=== PATIENT | female | born 1980 | race Caucasian/White ===

== ENCOUNTER 2019-01-14 05:36 | Day surgery (SDC) | payer MEDICAID ==
[2019-01-12 15:49] LABS: BASOPHILS # (AUTO) 0.1 X10'3 (0-0.2); BASOPHILS % (AUTO) 0.6 % (0-1); EOSINOPHILS # (AUTO) 0.2 X10'3 (0-0.9); EOSINOPHILS % (AUTO) 2.1 % (0-6); LYMPHOCYTES # (AUTO) 2.2 X10'3 (1.1-4.8); LYMPHOCYTES % (AUTO) 23.7 % (21-51); MEAN CORPUSCULAR HEMOGLOBIN 29.2 PG (27.0-31.0); MEAN CORPUSCULAR HGB CONC 33.2 g/dL (33.0-36.5); MEAN CORPUSCULAR VOLUME 87.7 FL (78-98); MEAN PLATELET VOLUME 8.7 FL (7.4-10.4); MONOCYTES # (AUTO) 0.8 X10'3 (0-0.9); MONOCYTES % (AUTO) 8.1 % (2-12); NEUTROPHILS # (AUTO) 6.1 X10'3 (1.8-7.7); NEUTROPHILS % (AUTO) 65.5 % (42-75); PRE OP PLATELET COUNT 233 X10'3 (140-440); RED BLOOD COUNT 4.45 X10'6 (4.20-5.60)
[2019-01-12 15:49] LABS: CLARITY,URINE CLOUDY (Clear); COLOR,URINE YELLOW (Yellow); GLUCOSE, URINE NEGATIVE (Neg); KETONES,URINE NEGATIVE (Neg); LEUKOCYTE ESTERASE ,URINE NEGATIVE (Neg); NITRITES, URINE NEGATIVE (Neg); OCCULT BLOOD,URINE NEGATIVE (Neg); PH,URINE 5.5 (4.8-8.0); PROTEIN,URINE NEGATIVE (Neg); UROBILINOGEN,URINE 0.2 E.U/dL (0.2-1.0)
[2019-01-12 15:50] LABS: UA COLLECTION TYPE CLN CATCH MIDSTREAM
[2019-01-12 15:59] LABS: BACTERIA,URINE 1+ /HPF (Neg); MUCUS STRANDS MODERATE /LPF (Neg); RBC,URINE 0-2 /HPF (0-2); SQUAMOUS EPITHELIAL CELL,UR MANY /LPF (FEW); WBC,URINE 0-4 /HPF (0-4)
[2019-01-12 16:00] LABS: ALBUMIN/GLOBULIN RATIO 1.1 (1.1-1.5); ALKALINE PHOSPHATASE 51 IU/L (46-116); BLOOD UREA NITROGEN 9 MG/DL (7-18); BUN/CREATININE RATIO 11.8 (6.6-38.0); CHLORIDE 104 MMOL/L (99-107); CREATININE 0.76 MG/DL (0.40-0.90); PRE OP ALT 26 U/L (30-65); PRE OP ANION GAP 8 (8-16); PRE OP AST 15 U/L (10-37); PRE OP BILIRUB, TOTAL 0.7 MG/DL (0.0-1.0); PRE OP GLUCOSE 85 MG/DL (70-104); PRE OP POTASSIUM 3.4 MMOL/L (3.4-5.1); PRE OP SODIUM 138 MMOL/L (135-145); TOTAL CARBON DIOXIDE 26.2 MMOL/L (24-32); TOTAL PROTEIN 7.6 G/DL (6.4-8.2); eGFR 86 ML/MIN
[2019-01-12 16:06] LABS: HCG SERUM QL NEGATIVE
[2019-01-12 16:09] LABS: PRE OP PROTIME 10.2 SECONDS (9.0-12.0)
[~2019-01-14] VITALS: Ht 163.8 cm; Wt 81.4 kg
[2019-01-14] VITALS (15 sets, daily range): BP systolic 105–136; BP diastolic 56–87
[~2019-01-14 05:36] MED LIST: DOCUMENT DATE & TIME OF BETA-BLOCKER PO ONE; HYDR25TA4 PO; LABE100T5 PO; NIFE90TA2 PO; ceFOXitin 2 GM ADDVANTGE BAG 50 ML IV ONE; famotidine 20mg tablet PO ONE; ringers solution, lacted 1,000 ML IV SCH
[2019-01-14] MEDS ORDERED: LIDOcaine 1% (10mg/ml) 2ml vial ONE (06:05)
[2019-01-14] MEDS ORDERED: BUPIVAcaine/PF 2.5mg/ml (0.25%) 10ml vial ONE (06:37)
[2019-01-14] MEDS ORDERED: sevoflurane 250ml liquid IH ONE (07:16)
[2019-01-14] MEDS ORDERED: midazolam 2 mg/2 ml injection ONE (07:16)
[2019-01-14] MEDS ORDERED: dexamethasone sod phosphate 10mg/ml inj ONE (07:16)
[2019-01-14] MEDS ORDERED: fentaNYL/PF 50MCG/1 ML 2ML syringe ONE (07:16)
[2019-01-14] MEDS ORDERED: rocuronium 10mg/ml inj IV ONE (07:19)
[2019-01-14] MEDS ORDERED: propofol inj 20 ML IV ONE (07:19)
[2019-01-14] MEDS ORDERED: ringers solution, lacted 1,000 ML IV SCH (07:52)
[2019-01-14] MEDS ORDERED: meperidine/PF 25mg/ml syringe IV PRN ×2 (07:55)
[2019-01-14] MEDS ORDERED: proCHLORperazine 10 MG/2 ml inj IV PRN (07:55)
[2019-01-14] MEDS ORDERED: morphine 4 MG/ML inj SYRINge IV PRN ×2 (07:55)
[2019-01-14] MEDS ORDERED: ondansetron/PF 4mg/2ml inj IV PRN (07:55)
[2019-01-14] MEDS ORDERED: ondansetron/PF 4mg/2ml inj ONE (08:04)
[2019-01-14] MEDS ORDERED: acetaminophen 1,000mg/100ml IV 100 ML IV ONE (08:05)
[2019-01-14] MEDS ORDERED: neostigmine methylsulfate 1 MG/ML 10ml vial ONE (08:12)
[2019-01-14] MEDS ORDERED: glycopyrrolate 0.2mg/ml inj ONE (08:13)
--- NOTE | 2019-01-14 08:29 | NUR ---
Received from OR via [facility], accompanied by Anesthesiologist DR JUAREZ and report given by Anesthesiologist. PT VERY DROWSY, NO S/S OF DISTRESS/DISTRESS, ABDOMEN W/3 LAP SITES W/BANDAIDS CDI. Addendum: 01/14/19 at 0846 by Manjula Hall RN Amended: Links added.
[2019-01-14] MEDS: meperidine/PF 25mg/ml syringe IV PRN ×2 (08:51→09:03)
[2019-01-14] MEDS ORDERED: ketorolac trometh. 30mg/ml inj. IV ONE (09:00)
--- NOTE | 2019-01-14 10:29 | NUR ---
PT UP AND OOB, AMBULATES STEADY TO BATHROOM FOR VOID, D/C INSTRUCTIONS GONE OVER AND GIVEN TO PT, PT VERBALIZES UNDERSTANDING, PT D/CD TO HOME VIA W/C TO PRIVATE VEHICLE W/O INCIDENT. Addendum: 01/14/19 at 1046 by Manjula Hall RN Amended: Links added.
== END 2019-01-14 10:29 | disposition home or self-care (01) ==
LOC: PAS 05:36
PROVIDERS: ATTEND Obstetrics & Gynecology
DX: Z30.2 Encounter for sterilization (principal); I10 Essential (primary) hypertension; Z79.899 Other long term (current) drug therapy; Z87.891 Personal history of nicotine dependence; Z98.890 Other specified postprocedural states
CPT/HCPCS: 36415; 58661; 80053; 81001; 82948; 84703; 85025; 85610; 85730; 86885; 86900; 86901; J0131; J0694; J1100; J1885; J2001; J2175; J2250; J2405; J2704; J2710; J3010; J3490; A4618; J7120

== ENCOUNTER 2021-09-06 11:04 | Day surgery (SDC) | payer MEDICAID ==
[2021-08-31 12:08] LABS: CLARITY,URINE SLIGHTLY CLOUDY (Clear); COLOR,URINE YELLOW (Yellow); GLUCOSE, URINE NEGATIVE (Neg); KETONES,URINE NEGATIVE (Neg); LEUKOCYTE ESTERASE ,URINE NEGATIVE (Neg); NITRITES, URINE NEGATIVE (Neg); OCCULT BLOOD,URINE NEGATIVE (Neg); PH,URINE 7.5 (4.8-8.0); PROTEIN,URINE NEGATIVE (Neg); UROBILINOGEN,URINE 0.2 E.U/dL (0.2-1.0)
[2021-08-31 12:09] LABS: UA COLLECTION TYPE CLN CATCH MIDSTREAM
[2021-08-31 12:14] LABS: BACTERIA,URINE 2+ /HPF (Neg); RBC,URINE NONE SEEN /HPF (0-2); WBC,URINE 0-4 /HPF (0-4)
[2021-08-31 12:15] LABS: MUCUS STRANDS FEW /LPF (Neg); SQUAMOUS EPITHELIAL CELL,UR MANY /LPF (FEW)
[2021-08-31 12:26] LABS: BASOPHILS # (AUTO) 0.1 X10'3 (0-0.2); BASOPHILS % (AUTO) 1.1 % (0-1); EOSINOPHILS # (AUTO) 0.1 X10'3 (0-0.9); EOSINOPHILS % (AUTO) 1.8 % (0-6); LYMPHOCYTES % (AUTO) 24.8 % (21-51); MEAN CORPUSCULAR HEMOGLOBIN 29.1 PG (27.0-31.0); MEAN CORPUSCULAR HGB CONC 33.9 g/dL (33.0-36.5); MEAN CORPUSCULAR VOLUME 85.9 FL (78-98); MEAN PLATELET VOLUME 8.6 FL (7.4-10.4); MONOCYTES # (AUTO) 0.6 X10'3 (0-0.9); MONOCYTES % (AUTO) 7.7 % (2-12); NEUTROPHILS # (AUTO) 5.1 X10'3 (1.8-7.7); NEUTROPHILS % (AUTO) 64.6 % (42-75); PRE OP HEMATOCRIT 39.2 % (35.0-45.0); PRE OP HEMOGLOBIN 13.3 g/dL (12.0-16.0); PRE OP PLATELET COUNT 274 X10'3 (140-440); RED BLOOD COUNT 4.57 X10'6 (4.20-5.60); RED CELL DISTRIBUTION WIDTH 12.9 % (11.5-14.5)
[2021-08-31 12:39] LABS: HCG SERUM QL NEGATIVE
[2021-08-31 12:49] LABS: ALBUMIN/GLOBULIN RATIO 1.1 (1.1-1.5); ALKALINE PHOSPHATASE 52 IU/L (46-116); BLOOD UREA NITROGEN 9 MG/DL (7-18); BUN/CREATININE RATIO 14.1 (6.6-38.0); CALCIUM 8.8 MG/DL (8.5-10.1); CHLORIDE 102 MMOL/L (99-107); CREATININE 0.64 MG/DL (0.40-0.90); PRE OP ALT 25 U/L (30-65); PRE OP ANION GAP 9 (8-16); PRE OP AST 19 U/L (10-37); PRE OP BILIRUB, TOTAL 0.6 MG/DL (0.0-1.0); PRE OP GLUCOSE 86 MG/DL (70-104); PRE OP POTASSIUM 3.6 MMOL/L (3.4-5.1); PRE OP SODIUM 139 MMOL/L (135-145); TOTAL CARBON DIOXIDE 27.6 MMOL/L (24-32); TOTAL PROTEIN 7.5 G/DL (6.4-8.2); eGFR > 90 ML/MIN
[2021-09-06] VITALS (9 sets, daily range): BP systolic 111–126; BP diastolic 65–83
[~2021-09-06] VITALS: Ht 162.6 cm; Wt 86.9 kg
[~2021-09-06 11:04] MED LIST changes: -DOCUMENT DATE & TIME OF BETA-BLOCKER PO ONE; -ceFOXitin 2 GM ADDVANTGE BAG 50 ML IV ONE; +ceFOXitin 2GM-NS 100mL ADDvant 100 ML IV ONE; -ringers solution, lacted 1,000 ML IV SCH
[2021-09-06] MEDS ORDERED: METO25TA6 PO (11:48)
[2021-09-06] MEDS ORDERED: SERT-432 PO (11:48)
[2021-09-06] MEDS ORDERED: ringers solution, lacted 1,000 ML IV SCH (14:35)
[2021-09-06] MEDS ORDERED: morphine 4 MG/ML inj SYRINge IV PRN (14:35)
[2021-09-06] MEDS ORDERED: ondansetron/PF 4mg/2ml inj IV PRN (14:35)
[2021-09-06] MEDS ORDERED: labetalol 20mg/4ml (5mg/ml) syringe IV PRN (14:35)
[2021-09-06] MEDS ORDERED: morphine 2 MG/ML inj. syringe IV PRN (14:35)
[2021-09-06] MEDS ORDERED: hydrALAZINE 20mg/ml inj. IV PRN (14:35)
[2021-09-06] MEDS ORDERED: fentaNYL/PF 50MCG/1 ML 2ML syringe IV PRN ×2 (14:35)
[2021-09-06] MEDS ORDERED: FENTANYL CITRATE/PF 50 MCG/1 ML VIAL ONE (14:38)
[2021-09-06] MEDS ORDERED: midazolam 1 mg/ML 2ml injection ONE (14:39)
[2021-09-06] MEDS ORDERED: LIDOcaine 2% (20mg/ml) 5ml vial ONE (14:40)
[2021-09-06] MEDS ORDERED: dexamethasone sod phosphate 4mg/ml inj. ONE (14:40)
[2021-09-06] MEDS ORDERED: propofol inj 20 ML IV ONE (14:40)
[2021-09-06] MEDS ORDERED: ondansetron/PF 4mg/2ml inj ONE (14:40)
--- NOTE | 2021-09-06 15:28 | NUR ---
Received from OR via [facility], accompanied by Anesthesiologist DR ARRIAZA and report given by Anesthesiologist [facility]. PT DROWSY, DENIES PAIN. ROB PAD IN PLACE, CDI Addendum: 09/06/21 at 1544 by Manjula Hall RN Amended: Links added.
--- NOTE | 2021-09-06 16:58 | NUR ---
PT UP AND ABLE TO AMBULATE SAFELY, TOLERATING ORAL FLUIDS AND CRACKERS, PAIN MINIMAL, D/C INSTRUCTIONS GIVEN AND GONE OVER PT WHO VERBALIZED UNDERSTANDING. PT D/CD TO HOME VIA W/C TO PRIVATE VEHICLE W/O INCIDENT. Addendum: 09/06/21 at 1717 by Manjula Hall RN Amended: Links added.
[2021-09-07] MEDS ORDERED: ringers solution, lacted 1,000 ML IV SCH (05:00)
[2021-09-07] MEDS ORDERED: DOCUMENT DATE & TIME OF BETA-BLOCKER PO ONE (05:30)
== END 2021-09-06 16:58 | disposition home or self-care (01) ==
LOC: PAS 11:04
PROVIDERS: ATTEND Obstetrics & Gynecology Obstetrics
DX: N92.1 Excessive and frequent menstruation with irregular cycle (principal); N94.6 Dysmenorrhea, unspecified; I10 Essential (primary) hypertension; E66.9 Obesity, unspecified; Z68.32 Body mass index [BMI] 32.0-32.9, adult; Z20.822 Contact with and (suspected) exposure to COVID-19; Z98.51 Tubal ligation status; Z98.890 Other specified postprocedural states; Z79.899 Other long term (current) drug therapy; Z87.891 Personal history of nicotine dependence; Z72.89 Other problems related to lifestyle; Z91.013 Allergy to seafood; Z91.09 Other allergy status, other than to drugs and biological substances; Z82.49 Family history of ischemic heart disease and other diseases of the circulatory system
CPT/HCPCS: 36415; 58558; 71046; 80053; 81001; 82948; 84703; 85025; 86885; 86900; 86901; 93005; J0694; J1100; J2250; J2405; J2704; J3010; J3490; J7030; U0003; U0005; Z7506; Z7512; A4355; A4618; A6258; A7000; J7120